=== PATIENT | female | born 1960 ===

== ENCOUNTER 2019-04-07 11:29 | Emergency (ER) | payer OTHER ==
[~2019-04-07] VITALS: Ht 165.1 cm; Wt 72.6 kg
== END 2019-04-07 15:41 | disposition home or self-care (01) ==
LOC: ER 11:29
DX: R53.83 Other fatigue (principal); T43.595A Adverse effect of other antipsychotics and neuroleptics, initial encounter; Y92.814 Boat as the place of occurrence of the external cause